=== PATIENT | female | born 2000 | race Caucasian/White ===

== ENCOUNTER 2021-11-21 13:32 | Emergency (ER) | payer OTHER, SELFPAY ==
--- NOTE | ~2021-11-21 | XR_ITS ---
EXAMINATION: XR KNEE, LEFT CLINICAL INFORMATION: Left knee injury and pain COMPARISON: None TECHNIQUE: Four views of the left knee. FINDINGS: No acute fracture or dislocation. Alignment is anatomic. Joint spaces are well maintained. Small joint effusion. No abnormal soft tissue calcification. XR/XR knee LT 3V IMPRESSION: No acute fracture or dislocation. Small knee joint effusion.
[2021-11-21 13:38] VITALS: BP 131/73; PULSE 74; RESP 20; TEMP 36.5; O2SAT 100; BMI 30.9
[2021-11-21] MEDS: Ibuprofen 600 MG TABLET PO (13:44)
--- NOTE | 2021-11-21 15:42 | ED_ITS ---
HPI - Extremity Injury (Lower) General Chief Complaint: Extremity Injury, Lower Stated Complaint: l leg pain fall Time Seen by Provider: 11/21/21 15:14 Source: patient Mode of arrival: ambulatory Limitations: no limitations History of Present Illness HPI Narrative: 21-year-old female here with left knee pain. Patient tells me on Tuesday she had a slip and fall out of the shower onto a mat and heard a popping sensation in her left knee. She was seen at [facility]. She had x-rays that showed no bony abnormality. She was discharged home with knee immobilizer and crutches and recommendations to follow-up with Orthopedics. She tells me that she call Orthopedics and has an appointment on Tuesday. She has been taking 600 mg of Motrin every 8 hours with continued pain. She is here today seeking an MRI and better pain control. She denies any additional injury. No associated weakness, numbness or tingling. Related Data Previous Rx's Medication Instructions Recorded ibuprofen 800 mg tablet 800 mg PO Q6H PRN pain #20 tabs 11/21/21 Allergies Allergy/AdvReac Type Severity Reaction Status Date / Time No Known Allergies Allergy Verified 11/21/21 15:39 Review of Systems Review of Systems: Yes all other systems are reviewed and are negative Constitutional: Constitutional: Reports no additional constitutional complaints, Denies body ache(s), Denies chills, Denies fever(s), Denies headache(s) and Denies weakness Eyes: Eyes: Reports no additional eye complaints and Denies change in vision ENT: Reports system reviewed and no additional complaints, except as documented, Denies dizziness, Denies headache(s), Denies nasal congestion, Denies nasal discharge and Denies neck pain Cardiovascular: Cardiovascular: Reports no additional cardiovascular complaints, Denies chest pain, Denies leg edema and Denies dyspnea Respiratory: Respiratory: Reports no additional respiratory complaints, Denies cough and Denies dyspnea Gastrointestinal: Gastrointestinal: Reports no additional gastrointestinal complaints, Denies abdominal pain, Denies diarrhea, Denies nausea and Denies vomiting Genitourinary: Genitourinary: Reports no additional female genitourinary complaints and Denies urinary incontinence Musculoskeletal: Musculoskeletal: Reports no additional musculoskeletal complaints, Denies back pain, Reports arthralgias, Reports joint swelling, Denies neck pain, Denies numbness and Denies tingling Integumentary/Breasts: Skin/Breast: Reports system reviewed and no additional complaints, except as docu and Denies rash Neurologic: Reports system reviewed and no additional complaints, except as documented, Denies Abnormal speech present, Denies dizziness, Denies headache(s), Denies numbness, Denies tingling and Denies weakness PMFSH Past Medical History Attestation statement: The following information was validated with the patient. Source: old records reviewed and nursing notes reviewed Social History Social History Advance Directives: No Advance Directives Information Provided: No Physical Exam Vital Signs: Vital Signs: Last Vital Signs Temp 97.7 F 11/21/21 13:38 Pulse 74 11/21/21 13:38 Resp 20 11/21/21 13:38 BP 131/73 11/21/21 13:38 Pulse Ox 100 11/21/21 13:38 O2 Del Method 11/21/21 13:38 BMI result Body Mass Index 30.9 Const: General: cooperative, healthy appearing, comfortable and no acute distress Orientation/consciousness: patient oriented x3 Limitations: no limitations HEENT: Head: Yes normal to inspection Ears: hearing grossly normal bilaterally General nose exam: Normal external nose present Face and sinus: Yes normal facial exam Mouth: Normal oral and palatal mucosa present Throat: Yes posterior oropharynx normal Eyes: General: appearance normal, both eyes and all related structures Pupils: Equal, round and reactive pupils present Neck: Neck: Yes normal visual inspection Chest: Chest palpation & inspection: normal inspection of the chest Resp: Effort & Inspection: normal respiratory effort Auscultation: clear to auscultation bilaterally Cardio: Rate: regular rate Rhythm: regular rhythm Peripheral pulses: Peripheral pulses 2+ throughout GI: Inspection: Yes normal to inspection Palpation (GI): Soft to palpation and nontender Auscultation: normal bowel sounds Back/Spine/Pelvis: Thoracic/Lumbar Spine: thoracic and lumbar spine normal to inspection Skin: General skin exam: no rashes or lesions noted Neuro: General: patient oriented x3, no focal motor deficits and normal sensation to monofilament Cranial nerves: Yes Equal, round and reactive pupils present Cognition (Neuro): normal cognition Speech: No Abnormal speech present Gait exam (Neuro): Normal gait present Motor exam (neuro): 5/5 motor strength present throughout Extrem: Other: There is a effusion over the left knee. There is tenderness over the anterior knee. Patient has the knee and extension. She has pain with flexion of the knee. Unable to assess ligamental laxity due to swelling. Neurovascularly intact distally. General: Yes normal to inspection MDM - Extremity Injury (Lower) MDM Narrative Medical decision making narrative: 21-year-old female here with left knee pain after a mechanical fall on Tuesday despite using knee immobilizer, crutches and taking ibuprofen 600 mg every 8 hours. Patient had previous evaluation at [facility] for this. She has an appointment with orthopedics is Tuesday. On exam patient has a joint effusion with limited flexion due to pain. Unable to assess ligamental laxity due to swelling. Neurovascular intact distally. Repeat x-rays today show small joint effusion but no other acute bony abnormality. Likely ligamental sprain, meniscus injury. Patient received Toradol in the emergency room. We discussed increasing her dose of ibuprofen 800 mg every 6 hours. She should continue rice at home and use the immobilizer and crutches. At this point she does not need an emergent MRI. She can follow-up with orthopedics outpatient to see if this is necessary. Reviewed worrisome signs and symptoms when to return to the emergency room. Comfortable discharge home. Medical Records Attestation: I reviewed the patient's medical records. Lab Data Attestation: I reviewed the patient's lab results. Discharge Plan Discharge Clinical Impression: Left knee sprain Patient Disposition: Home, Self-Care Instructions: Knee Sprain (ED) Additional Instructions: Use the knee immobilizer and crutches with nonweightbearing Rest, ice, elevate the limb Continue ibuprofen. You may alternate this with tylenol Keep your appointment with Orthopedics on Tuesday Prescriptions: New ibuprofen 800 mg tablet 800 mg PO Q6H PRN (Reason: pain) Qty: 20 0RF Interventions: ED Discharge Assessment Last Done: 11/21/21 15:54 Discharge Date/Time: 11/21/21 15:54
[2021-11-21] MEDS: Ketorolac Tromethamine 60 MG/2 ML VIAL IM (15:53)
== END 2021-11-21 15:54 | disposition home or self-care (01) ==
PROVIDERS: Emergency Provider Emergency Medicine; PCP Pediatrics
DX: S83.92XA Sprain of unspecified site of left knee, initial encounter (principal); W18.2XXA Fall in (into) shower or empty bathtub, initial encounter; Y93.E1 Activity, personal bathing and showering; Y92.012 Bathroom of single-family (private) house as the place of occurrence of the external cause; Y99.9 Unspecified external cause status
CPT/HCPCS: 73562; 96372; 99283; 99284; J1885